=== PATIENT | male | born 1950 | race Caucasian/White ===

== ENCOUNTER → 2016-07-09 | Outpatient (CLI) | payer OTHER | END | disposition home or self-care (01) | LOC: CFH 12:32 | PROVIDERS: ATTEND Nurse Practitioner | DX: M48.06 Spinal stenosis, lumbar region (principal); M25.78 Osteophyte, vertebrae; M43.16 Spondylolisthesis, lumbar region | CPT/HCPCS: 72110; 72148 ==

== ENCOUNTER → 2017-01-07 | Outpatient (CLI) | payer OTHER | END | disposition home or self-care (01) | LOC: CFH 10:21 | PROVIDERS: ATTEND Internal Medicine Nephrology | DX: N28.1 Cyst of kidney, acquired (principal); N18.3 Chronic kidney disease, stage 3 (moderate) | CPT/HCPCS: 76770 ==

== ENCOUNTER 2019-03-30 09:09 | Outpatient (CLI) | payer MEDICARE | END 2019-03-30 23:59 | disposition home or self-care (01) | LOC: CFH 09:09 | PROVIDERS: ATTEND Psychiatry & Neurology Neurology | DX: I67.82 Cerebral ischemia (principal); G31.89 Other specified degenerative diseases of nervous system | CPT/HCPCS: 70551 ==

== ENCOUNTER → 2020-04-24 | Outpatient (CLI) | payer MEDICARE | END | disposition home or self-care (01) | LOC: CVU 13:27 | PROVIDERS: ATTEND Psychiatry & Neurology Neurology | DX: I08.3 Combined rheumatic disorders of mitral, aortic and tricuspid valves (principal); I65.23 Occlusion and stenosis of bilateral carotid arteries; I10 Essential (primary) hypertension; E78.5 Hyperlipidemia, unspecified; Z87.891 Personal history of nicotine dependence | CPT/HCPCS: 93306; 93356; 93880 ==